=== PATIENT | male | born 1985 | race Two or more races ===

== ENCOUNTER 2024-04-19 00:48 | Emergency (ER) | payer MEDICAID ==
[~2024-04-19] VITALS: Ht 172.7 cm; Wt 110.0 kg
[2024-04-19 00:52] VITALS: TEMP 98
[2024-04-19] MEDS: LORazepam 2 MG TABLET PO ONE (03:10)
[2024-04-19 04:20] VITALS: BP 152/89; PULSE 79; RESP 16; O2SAT 97
== END 2024-04-19 05:12 | disposition home or self-care (01) ==
LOC: EMS 00:49
DX: F41.9 Anxiety disorder, unspecified (principal); T40.715A Adverse effect of cannabis, initial encounter; I10 Essential (primary) hypertension; F12.90 Cannabis use, unspecified, uncomplicated
CPT/HCPCS: 99283